=== PATIENT | male | born 1945 ===

== ENCOUNTER 2017-06-17 12:47 | Inpatient (IN) | payer MEDICARE ==
[2017-06-17] MEDS ORDERED: NS 0.9% 1000 ML* 1,000 ML IV ONE ×2 (12:55→15:09)
[2017-06-17 13:16] LABS: ABS Basophils 0.1 10^3/ul (0-0.2); ABS Eosinophils 0 10^3/ul (0-0.6); ABS Lymphocytes 0.8 10^3/ul (1.0-4.8); ABS Monocytes 1.1 10^3/ul (0-0.8); ABS Nucleated RBC 0 10^3/ul; Eosinophil % 0 % (0-6); Hematocrit 35 % (42-52); Hemoglobin 11.5 g/dl (14.0-18.0); Lymphocyte % 5.5 % (25-47); Mean Corpuscular HGB Conc 33 g/dl (31-36); Mean Corpuscular Hemoglobin 30 pg (27-31); Mean Corpuscular Volume 91 fL (80-94); Mean Platelet Volume 9.3 um3 (7.4-10.4); Nucleated Red Blood Cells % 0; Platelet Count 179 10^3/ul (150-450); Red Blood Count 3.82 10^6/ul (4.0-5.4); Red Cell Distribution Width 15 % (10.5-15)
[2017-06-17 13:26] LABS: INR 1.1 (0.77-1.02)
--- NOTE | 2017-06-17 13:34 | RAD ---
Indication: Confusion. Single frontal view of the chest performed at 1315 hours was reviewed. No prior study is available for comparison. Cardiomegaly is noted. Interstitial edema is noted. Patient is status post transsternal thoracotomy. No definite pleural fluid is identified. IMPRESSION: CARDIOMEGALY WITH INTERSTITIAL EDEMA. FINDINGS CONSISTENT WITH CHF.
[2017-06-17] MEDS ORDERED: Piperacillin/Tazobac ADVAN(*) 3.375 GM in NS 0.9% 100 ML* 100 ML IVPB ONE (13:37)
[2017-06-17] MEDS ORDERED: Vancomycin(*) 1,500 MG in NS 0.9% 250 ML* 250 ML IVPB ONE (13:37)
[2017-06-17 13:38] LABS: EGFR Non-African American 42.8 (>60)
[2017-06-17] MEDS ORDERED: levETIRAcetam IV* 1,000 MG in NS 0.9% 100 ML* 100 ML IVPB ONE (13:44)
--- NOTE | 2017-06-17 13:46 | RAD ---
Indication: Confusion. CT of the brain was performed without IV contrast. There is a large intraparenchymal hematoma involving the left temporal lobe extending into the left frontal and parietal lobes. This is causing mass effect on the lateral ventricles. Midline shift to the right approximate 5 mm is noted. Intraventricular hemorrhage is noted in both lateral ventricles. Extra-axial spaces are unremarkable. Mastoid air cells and paranasal sinuses are otherwise unremarkable. IMPRESSION: Large left-sided intraparenchymal hematoma with mass effect on the lateral ventricle and bilateral intraventricular hemorrhage. There is midline shift to the right of approximately [address] Abel was notified of the results at 1343 hours.
--- NOTE | 2017-06-17 13:52 | RAD ---
HISTORY: Altered mental status, neck pain, found down COMPARISONS: MRI dated February 18, 2003 TECHNIQUE: Multiple contiguous axial CT scans were obtained of the cervical spine without intravenous contrast, with coronal and sagittal multiplanar reformations. FINDINGS: BRAIN: The visualized brain is unremarkable CENTRAL CANAL: Evaluation of the central canal is limited on CT technique; however, there is no obvious canalicular mass or epidural hemorrhage. ALIGNMENT: There is grade 1 anterolisthesis of C3 on C4 and C7 on T1. VERTEBRAL BODIES: There is multilevel anterolateral marginal osteophyte formation. There is no displaced fracture or dislocation. JOINTS: There is osteoarthritis of the atlantoaxial, uncovertebral, and facet joints. There is exuberant pannus formation at the lateral axial articulation, without appreciable mass effect upon the cervicomedullary junction.. MUSCULATURE: Unremarkable INTERVERTEBRAL DISCS: There is diffuse loss of intervertebral disc height. AXIAL IMAGES: C2-C3: There is no osseous neural foraminal narrowing or central canal stenosis. C3-C4: There is bilateral uncovertebral and facet hypertrophy. There is severe bilateral neural foraminal narrowing. There is mild narrowing of central canal. C4-C5: There is bilateral uncovertebral and facet hypertrophy. There is moderate right and mild left neuroforaminal narrowing. There is no osseous central canal stenosis. C5-C6: There is bilateral uncovertebral hypertrophy. There is moderate to severe bilateral neural foraminal narrowing. There is no osseous central canal stenosis. C6-C7: There is bilateral uncovertebral hypertrophy. There is moderate bilateral neural foraminal narrowing. There is no osseous canal stenosis. C7-T1: There is no osseous neural foraminal narrowing or central canal stenosis. SOFT TISSUES: The visualized soft tissues of the neck are unremarkable. The prevertebral fat stripe is preserved. OTHER: None. IMPRESSION: 1. DEGENERATIVE DISC DISEASE AND OSTEOARTHRITIS. 2. THERE IS EXUBERANT PANNUS FORMATION AT C1-C2, WITHOUT APPRECIABLE MASS EFFECT UPON THE CERVICOMEDULLARY JUNCTION. 3. THERE IS MILD NARROWING OF THE CENTRAL CANAL AT C3-C4. 4. THERE IS MULTILEVEL NEURAL FORAMINAL NARROWING DESCRIBED ABOVE.
[2017-06-17 14:00] LABS: Urine Appearance Cloudy; Urine Blood 2+ (Negative); Urine Color Yellow; Urine Ketones Trace (Negative); Urine Protein 2+(100 mg/dL) (Negative); Urine Specific Gravity 1.019 (1.010-1.030); Urine Urobilinogen Negative (Negative)
[2017-06-17] MEDS ORDERED: Etomidate* 2 MG/ML 20 ML VIAL (40 MG) ONE (14:41)
[2017-06-17] MEDS ORDERED: Succinylcholine* 20 MG/ML 10 ML VIAL ONE (14:43)
[2017-06-17] MEDS ORDERED: Propofol* 100 ML ONE (14:58)
[2017-06-17] MEDS: Propofol* 100 ML IV SCH ×3 (15:05→22:49)
[2017-06-17] MEDS ORDERED: Sodium Chloride 3% HYPERTONIC* 500 ML IVPB ONE (15:07)
[2017-06-17] MEDS ORDERED: Albuterol/Ipratropium NEB.SOL* Albuterol 2.5 MG/Ipratropium 0.5 MG 3 ML INH PRN (15:11)
[2017-06-17] MEDS ORDERED: Artificial Tears* 15 ML BTL BOTH EYES PRN (15:11)
--- NOTE | 2017-06-17 15:25 | RAD ---
HISTORY: Intubation COMPARISONS: June 17, 2017 and 1:10 PM VIEWS: 1: frontal portable view of the chest at 3:13 PM FINDINGS: LINES AND TUBES: There has been interval placement of an endotracheal tube. The tip overlies the trachea just below the clavicles. CARDIOMEDIASTINAL SILHOUETTE: The cardiac silhouette is enlarged. The cardiomediastinal silhouette is otherwise normal for portable technique. PLEURA: The costophrenic angles are sharp. No pleural abnormalities are noted. LUNG PARENCHYMA: There is prominence of the central pulmonary vasculature. ABDOMEN: The upper abdomen is clear. There is no subphrenic gas. BONES AND SOFT TISSUES: The patient is status post median sternotomy. IMPRESSION: 1. LINES AND TUBES ABOVE. 2. CARDIOMEGALY WITH PULMONARY VASCULAR CONGESTION.
--- NOTE | 2017-06-17 15:54 | HP ---
H&P (Free Text) History and Physical: CRITICAL CARE MEDICINE DATE: 06/17/17 TIME: 1445 PRIMARY CARE PROVIDER: Unknown REFERRING PROVIDER: Page REASON/CHIEF COMPLAINT: Iph, ivh HISTORY OF PRESENT ILLNESS: 71 M with h/o htn, cad, with poor activity level at home but details limited. Son states pt sleeps a lot (can be 12-16hours per day sometimes) and he assumed he was just sleeping last night. Last known well was over 24hrs ago. This am he was unarousable and ems summonded. In ED pt with GSC 5-[address] head with large left iph and ivh extension, likely originating in BG. Pt with poor airway protection and intubated for such in ED. initial bps 140s but have risen during stay. I evaluated and discussed situation with pts son (see below). Admitting to ICU. REVIEW OF SYSTEMS: As per HPI, limited sec to acuity. PAST MEDICAL HISTORY: As per HPI. melanoma, discetcomies, appendectomy, depression, dm MEDICATIONS: Reviewed. ALLERGIES: meperdine SOCIAL HISTORY: Reviewed. poor activity level. FAMILY HISTORY: Noncontributory at present. PHYSICAL EXAM: being set up for intubation at time of eval. Vital Signs: Reviewed. Neurologic: coma; moves both ue to pain and attempts slow localization alone thompson. Less response from LE. breathing but inadequate airway protection. HEENT: pupils were difficult to see as he had significant conjunctival exudate on both eyes; mm dry Cardiovascular: S1 S2 distant Respiratory: rhonchi but distant and not coughing Abdomen: soft, nt Extremities: disheveled; no edema Access: piv LABS: Reviewed. IMAGING: Reviewed. MEDICATIONS: Reviewed. ASSESSMENT: 71 M Large left IPH, likely originating from BG, with IVH extension and midline shift Coma Acute hypoxic resp failure due to above ?Aspiration vs just atelectasis KADIE Leukocytosis - reactive mild LA PLAN: d/w pts son regarding dx and treatment. Explained my concerns of potential underlying lesion and consideration for angio needs even if some portion of this potential sah, vs needing clot extraction with tpa techniques, and further invasive testing that we do not provided here; however explaining these dynamics may not necessarily be offered nor beneficial at other institutions either. We discussed medical and surgical capabilities and potentials here and where pts morbidity and mortality may be nonetheless. He agrees with aggressive medical therapy as we can here, without transfer, and understanding that aggressive surgical interventions here, al beit not warranted yet here, may be limited based on risk/benefit and would likely be avoid but could discuss during his acute phase. We agreed to admit and tx as we can here, as a dnr. Neurologic: start 3%. goal na 150 for today. nicardipine gtt. maintain sbp < 140. hob 30. neurochecks. CT tonight if nsgy desires otherwise can repeat honey am. check cva risk factor. Cardiovascular: may need to assess underlying cardiac function. NS as dry and then 3% for vol status. Respiratory: APV and support with vent protection. needs time here. Gastrointestinal: ogt. consider early tf come honey. sup Renal/Metabolic: ck up and cr; hydration and then maintain with 3% and f/u renal fx. milan. Infectious Disease: aspiration potential. no abx need currently. Hematology: f/u. can hold on vte checmical proph this first 48h and then consider if stability. Endocrine: check a1c. lipids. ssi. Musculoskeletal: bedrest. avoid breakdown. Psych/Social: d/w son, as above. Supportive and preventative care as ordered. SUP: ppi VTE prophylaxis: heparin Milan catheter given critical illness, monitoring needs for accurate assessment of KADIE and KDIGO criteria for critically ill patients and to avoid potential harms of urinary retention, skin breakdown/ulcers. Disposition: ICU Code Status: Full Critical Care Time: 45min Princess Bah DO
--- NOTE | 2017-06-17 15:59 | ED ---
Hubert Albright Gabriel, scribed for Walker Abel on 06/17/17 at 1258 . Altered Mental Status - HPI Summary HPI Summary: This patient is a 71 year old M BIBA to [facility] after being found unresponsive at 1100 today. Pt was found laying on the floor under his bed, his son heard him groining last night but believed he was just sleeping. He was last seen normal yesterday morning. At baseline he is alert, responsive, and takes care of himself. The patient is completely unresponsive and was found to be hypothermic by EMS on arrival. There is no heat where he lives and they use space heaters. Ems states the only response was one grunt when pulled his arm during transport. Rectal thermometer in room reveals 98.7. LEVEL 5 CAVEAT: HPI limited because the patient is unconscious - History Of Current Complaint Stated Complaint: UNRESPONSIVE Hx Obtained From: Family/Confidential Investigator, EMS, Medical Records Hx From Patient Unobtainable Due To: Altered Mental Status Onset/Duration: Unknown Timing: Constant Severity Initially: Severe Severity Currently: Severe Character: Responsiveness Aggravating Factor(s): Unknown Alleviating Factor(s): Unknown - Allergies/Home Medications Allergies/Adverse Reactions: Allergies Allergy/AdvReac Type Severity Reaction Status Date / Time meperidine [From Demerol] Allergy Unknown Verified 06/17/17 14:06 Reaction Details Home Medications: Home Medications BuPROPion XL* [Bupropion XL*] 300 mg PO DAILY 06/17/17 [History Confirmed ] Hyoscyamine Sulfate [Hyoscyamine Sulfate Sr] 0.375 mg PO BID 06/17/17 [History Confirmed 06/17/17] Isosorbide Mononitrate ER TAB* [Imdur ER TAB*] 30 mg PO BID 06/17/17 [History Confirmed 06/17/17] Metoprolol Tartrate TAB* [Lopressor TAB*] 50 mg PO BID 06/17/17 [History Confirmed 06/17/17] Pantoprazole TAB (NF) [Protonix TAB (NF)] 40 mg PO DAILY 06/17/17 [History Confirmed 06/17/17] Repaglinide TAB* [Prandin TAB*] 2 mg PO BID 06/17/17 [History Confirmed 06/17/17 ] Rosuvastatin (NF) [Crestor] 20 mg PO DAILY 06/17/17 [History Confirmed 06/17/17] Sertraline* [Zoloft*] 50 mg PO DAILY 06/17/17 [History Confirmed 06/17/17] PMH/Surg Hx/FS Hx/Imm Hx Cardiovascular History: Reports: Hx Coronary Artery Disease, Hx Hypertension Review of Systems - ROS Summary Review of Systems Summary: LEVEL 5 CAVEAT: ROS limited because the patient is unconscious Negative: Fever Neurological: Other - AMS All Other Systems Reviewed And Are Negative: No Physical Exam - Summary Physical Exam Summary: Appearance: elderly, unconscious Skin: warm, dry, reflects adequate perfusion Head/face: normal Eyes: EOMI, VICTOR MANUEL ENT: dry mucous membranes Neck: supple, Respiratory: CTA, breath sounds present, lungs are clear Cardiovascular: tachycardia, pulses symmetrical Abdomen: soft Bowel: present Musculoskeletal: pulse present b/l Neuro: unresponsive and moving ext for painfull stimuli Triage Information Reviewed: Yes Vital Signs Reviewed: Yes Completion Of Physical Exam Limited Due To: Altered Mental Status, Level 5 - [place] Coma Scale Best Eye Response: 1 - None Best Motor Response: 1 - None Best Verbal Response: 2 - Incomprehensible Words Coma Scale Total: 4 Procedures - Intubation Time of Intubation: 14:52 Intubation Method: orotracheal Tube Size (cm): 8.0 Medications: Succinylcholine Breath Sounds after Intubation: equal Intubation Complications: no complications Post Intubation Xray: Yes Diagnostics - Laboratory Result Diagrams: 06/17/17 12:57 06/17/17 12:57 Lab Statement: Any lab studies that have been ordered have been reviewed, and results considered in the medical decision making process. - Radiology CXR Radiology Interpretation Completed By: Radiologist - CARDIOMEGALY WITH INTERSTITIAL EDEMA. FINDINGS CONSISTENT WITH CHF. ED physician has reviewed this radiology report. - CT CT brain CT Interpretation Completed By: Radiologist - Large left-sided intraparenchymal hematoma with mass effect on the lateral ventricle and bilateral intraventricular hemorrhage. There is midline shift to the right of approximately 5 mm. ED physician has reviewed this radiology report. CT C-spine CT Interpretation Completed By: Radiologist - 1. DEGENERATIVE DISC DISEASE AND OSTEOARTHRITIS. 2. THERE IS EXUBERANT PANNUS FORMATION AT C1-C2, WITHOUT APPRECIABLE MASS EFFECT UPON THE CERVICOMEDULLARY JUNCTION. 3. THERE IS MILD NARROWING OF THE CENTRAL CANAL AT C3-C4. 4. THERE IS MULTILEVEL NEURAL FORAMINAL NARROWING DESCRIBED ABOVE. ED physician has reviewed this radiology report. Altered Mental Statu Course/Dx - Course Assessment/Plan: PT can in for AMS. Exam limited because the patient is unconscious. UA and blood work obtained. CXR reveals, per radiologist, CARDIOMEGALY WITH INTERSTITIAL EDEMA. FINDINGS CONSISTENT WITH CHF. CT brain reveals, per radiologist, Large left-sided intraparenchymal hematoma with mass effect on the lateral. ventricle and bilateral intraventricular hemorrhage. There is midline shift to the right. of approximately [address] Cspine reveals , per radiologist, 1. DEGENERATIVE DISC DISEASE AND OSTEOARTHRITIS. 2. THERE IS EXUBERANT PANNUS FORMATION AT C1-C2, WITHOUT APPRECIABLE MASS EFFECT UPON THE. CERVICOMEDULLARY JUNCTION. 3. THERE IS MILD NARROWING OF THE CENTRAL CANAL AT C3-C4. 4. THERE IS MULTILEVEL NEURAL FORAMINAL NARROWING DESCRIBED ABOVE. Dx intra cerebral bleed. Patient will be admitted to ICU. - Diagnoses Differential Diagnosis/HQI/PQRI: CVA, Intracranial Bleed, Metabolic Disorder, Overdose, Sepsis, TIA Provider Diagnoses: Intracerebral bleed - Critical Care Time Critical Care Time: 75-104 min Discharge - Sign-Out/Discharge Documenting (check all that apply): Discharge - Discharge Plan Condition: Fair Disposition: ADMITTED TO [facility] Referrals: No Primary Care Phys,NOPCP [Primary Care Provider] - - Billing Disposition and Condition Condition: FAIR [place] [place] Consult: 13:45 We discussed patient care with Dr. Flores and they suggested calling the demolition hammer operator. 14:17 We discussed patient care with Dr. Sawant and he will be look at the CT call back. 14:24 We discussed patient care with Dr. Bah and he suggested to let neurosurgery review the case and make a decision. 14:50 We discussed patient care with Dr. Sawant and he states the patient is not a surgical pt and he will come and see him. 14:55 We discussed patient care with Dr. Cruz and he has agreed to review the film and consult on the patient. 15:00 Dr. Dykes has agreed to admit the patient to ICU. The documentation as recorded by the Hubert melchor Gabriel accurately reflects the service I personally performed and the decisions made by , Walker Abel.
--- NOTE | 2017-06-17 16:04 | PN ---
Progress Note - Progress Note Date of Service: 06/17/17 Note: CRITICAL CARE MEDICINE DATE: 06/17/17 TIME: 1545 Re-exam of pt: pupils small and reactive. + corneals. Areas consistent appearing with acte and subacute falls. older ecchymotic abrasion of R supraorbital. Has ecchymosis at R wrist with edema as well as R knee. 3 old sutures in site on R arm. Abrasion and ecchymosis of RUQ. Needs imaging of R wrist Needs central access Critical Care Time: 5min Princess Bah DO
[2017-06-17] MEDS ORDERED: fentaNYL* 50 MCG/ML 2 ML VIAL (100 MCG VIAL) IV SLOW PU ONE (16:15)
[2017-06-17] MEDS ORDERED: fentaNYL* 50 MCG/ML 2 ML VIAL (100 MCG VIAL) ONE (16:17)
--- NOTE | 2017-06-17 17:11 | PN ---
Progress Note - Progress Note Date of Service: 06/17/17 Note: CRITICAL CARE MEDICINE DATE: 06/17/17 TIME: 1700 care d/w pts son and nsgy. son declining any nsgy procedures now and immediate future understanding the morbidity and mortality associated. wants support, without heroics, for a few days, but if pt cannot regain communication and some self care then likely allow comfort. He even explained that pt himself may not even want what he has now. Critical Care Time: 15min Princess Bah, DO
--- NOTE | 2017-06-17 17:36 | RAD ---
HISTORY: Central line placement COMPARISONS: June 17, 2017 at 3:00 PM VIEWS: 1: frontal portable view of the chest at 5:18 PM FINDINGS: LINES AND TUBES: The endotracheal tube is noted with the tip overlying the trachea between the clavicles and the porter. There has been interval placement of a right internal jugular venous catheter. The tip overlies the expected location of the superior vena cava. CARDIOMEDIASTINAL SILHOUETTE: The cardiomediastinal silhouette is stable. PLEURA: The costophrenic angles are sharp. No pleural abnormalities are noted. There is no appreciable pneumothorax. LUNG PARENCHYMA: There is prominence of the central pulmonary vasculature. The lung volumes are low. ABDOMEN: The upper abdomen is clear. There is no subphrenic gas. BONES AND SOFT TISSUES: The patient is status post median sternotomy. IMPRESSION: LINES AND TUBES ABOVE. NO APPRECIABLE PNEUMOTHORAX.
[2017-06-17] MEDS: Chlorhexidine MOUTHWASH 0.12%* 15 ML UDC TOPICAL SCH ×2 (18:17→22:54)
[2017-06-17] MEDS ORDERED: Magnesium Sulfate 2 GM IV IVPB ONE (18:51)
[2017-06-17] MEDS ORDERED: Magnesium Sulfate 2 GM IV* 2 GM/50 ML BAG ONE (18:53)
[2017-06-17] MEDS: Insulin REGULAR(*) 1 UNITS UNIT SUBCUT SCH (19:48)
--- NOTE | 2017-06-17 20:10 | PN ---
Progress Note - Progress Note Date of Service: 06/17/17 Note: CRITICAL CARE MEDICINE PROCEDURE NOTE DATE: 06/16/17 TIME: late entry from 1630 SERVICE: Critical Care Medicine LOCATION OF PROCEDURE: ICU PROCEDURE: Central line insertion. PROCEDURALIST: Dr. Bah Consent obtain: Yes verbal from son. Time out held: Yes INDICATION: Acute respiratory failure sec to ICH. PROCEDURE: Oxygenation maintained and vitals monitored. Patient in supine position. SITE: RIGHT Internal jugular Site preparation with chlorhexidine locally. Full sterile drape, gown, hat, mask, gloves. 5ml 1% Lidocaine utilized at incision site. Standard sterile Seldinger technique utilized via ultrasound guidance and catheter was inserted to 15cm and sutured in place. Good blood return. Minimal blood loss. Site dressed with tegaderm. Portable chest x-ray pending. Patient otherwise tolerated well. Princess Bah DO
--- NOTE | 2017-06-17 22:15 | CONS ---
Amended report to enter date of consultation. CONSULTATION REPORT: DATE OF CONSULT: 06/17/2017. HISTORY OF PRESENT ILLNESS: The patient is a very pleasant 71-year-old gentleman with history of hypertension, coronary artery disease, who was brought to the emergency room by EMT after reported to be found down by his son. The patient was seen normal the night prior to his admission. At the emergency room, the patient had GCS score of [address] scan of the head revealed a large left basal ganglia intracranial hemorrhage with intraventricular extension. The patient was intubated in the emergency room, requested to see the patient by the emergency room physician regarding CT scan findings. The patient was reported to be not on any anticoagulation. His blood pressure was controlled and the patient was admitted to intensive care unit after Dr. Bah discussed in extent with the patient's son regarding treatment options and level of care. PAST MEDICAL HISTORY: Hypertension, coronary artery disease. ALLERGIES: MEPERIDINE. MEDICATIONS: The patient is on: 1. Bupropion. 2. Hyoscyamine. 3. Isosorbide mononitrate. 4. Metoprolol. 5. Pantoprazole. 6. Repaglinide. 7. Rosuvastatin. 8. Sertraline. 9. Zoloft. FAMILY HISTORY: Noncontributory. SOCIAL HISTORY: The patient lives at home. He has very low activity level. PHYSICAL EXAMINATION: The patient was intubated in the emergency room after intubation. He does not open his eyes to pain. He is intubated, so he does not follow commands. He flexes the left upper extremity to pain and extends the right upper extremity to pain. Pupils are 4 mm on the right, 3 mm on the left, both reactive. He has got corneal, gag and cough reflexes. Face symmetric. Gaze conjugated. Sensory: The patient withdraws to pain with all extremities. Deep tendon reflexes +2 bilaterally. Clonus negative. Babinski positive bilaterally. DIAGNOSTIC STUDIES/LAB DATA: The patient had a CT scan of the brain revealing large left basal ganglia hemorrhage with mild mass effect with 5 mm midline shift. There is intraventricular extension with mild compression of the left ventricular system. The had a CT scan of the cervical spine revealing degenerative disk disease with spinal stenosis at C1-C2 without evidence of fracture. ASSESSMENT: The patient is a pleasant 71-year-old gentleman who was reported to be found down with altered mental status with CT scan findings consistent with large left basal ganglia intracranial hemorrhage with intraventricular extension. PLAN: The patient at this point has been admitted to the intensive care unit. After discussion of the patient's condition with the patient's son, the patient' s son would not like any surgical interventions or diagnostic interventions for the patient such as ventriculostomy, craniotomy or angiography. He understands different treatment options as well as possible outcomes for more conservative versus very aggressive treatment. At this point, he reports that according to patient's wishes, he would not like to consider surgical intervention or placement of ventriculostomy or further evaluation for possible aneurysmal vascular malformation, although he reports that there is a family history of cerebral aneurysm. The patient's son understands the possible grave prognosis and he has decided to place the patient on DNR. The patient will be receiving maximum medical therapy without any surgical intervention per family wishes. We will be available as needed. Full instructions were given to the patient's son, who understands the consequences of his decision. Appreciate Dr Green for his input in the discussion with patient's son. Thank you for allowing us to participate in the care of this patient. Please do not hesitate to contact our office in case you have any further questions or concerns regarding the care of this patient. [id number]/CPS #: [id number] MARVIN
[2017-06-18] MEDS: Propofol* 100 ML IV SCH ×6 (00:36→14:14)
[2017-06-18] MEDS: Chlorhexidine MOUTHWASH 0.12%* 15 ML UDC TOPICAL SCH ×7 (00:53→23:53)
[2017-06-18] MEDS: Insulin REGULAR(*) 1 UNITS UNIT SUBCUT SCH ×5 (01:45→23:53)
[2017-06-18] MEDS: fentaNYL* 50 MCG/ML 2 ML VIAL (100 MCG VIAL) IV SLOW PU PRN ×2 (01:45→11:18)
[2017-06-18] MEDS: Sodium Chloride 3% HYPERTONIC* 500 ML IVPB SCH ×2 (03:08→14:01)
[2017-06-18 06:20] LABS: Hematocrit 29 % (42-52); Hemoglobin 9.9 g/dl (14.0-18.0); Mean Corpuscular HGB Conc 34 g/dl (31-36); Mean Corpuscular Hemoglobin 31 pg (27-31); Mean Corpuscular Volume 91 fL (80-94); Platelet Count 124 10^3/ul (150-450); Red Blood Count 3.19 10^6/ul (4.0-5.4); Red Cell Distribution Width 15 % (10.5-15); White Blood Count 10.9 10^3/ul (3.5-10.8)
[2017-06-18 06:41] LABS: EGFR Non-African American 52.1 (>60)
[2017-06-18 06:43] LABS: INR 1.05 (0.77-1.02)
--- NOTE | 2017-06-18 07:27 | RAD ---
HISTORY: Right wrist abnormality, rule out fracture COMPARISONS: None VIEWS: 2, Frontal and lateral views of the right wrist FINDINGS: BONE DENSITY: Normal. BONES: There is no displaced fracture. JOINTS: There is no arthropathy. ALIGNMENT: There is no dislocation. SOFT TISSUES: There is circumferential soft tissue swelling at the wrist. OTHER FINDINGS: None. IMPRESSION: SOFT TISSUE SWELLING. NO ACUTE OSSEOUS INJURY. IF SYMPTOMS PERSIST, RECOMMEND REPEAT IMAGING.
[2017-06-18] MEDS: Lansoprazole susp Kit 3 MG/ML (30 MG = 10 ML) G TUBE SCH (08:13)
[2017-06-18] MEDS ORDERED: Lansoprazole SOLUTAB* 30 MG G TUBE SCH (09:00)
--- NOTE | 2017-06-18 09:13 | PN ---
Date of Service: 06/18/17 - [facility] note Critical Care Services: Pt seen and examined at bedside. Pt is intubated, sedated, no acute events o/n Active Medications Generic Name Dose Route Start Last Admin Trade Name Freq PRN Reason Stop Dose Admin Acetaminophen 650 mg 06/17/17 15:10 Tylenol Adult Liq* PO Q4H PRN FEVER Albuterol/Ipratropium 1 neb 06/17/17 15:11 Duoneb (Albuterol 2.5 Mg/Ipratropium 0.5 Mg) INH Q6H PRN SOB/WHEEZING Chlorhexidine Gluconate 15 ml 06/17/17 16:00 06/18/17 08:13 Peridex Mouth Wash 0.12%* TOPICAL 15 ml Q4H CHRISTY Administration Fentanyl Citrate 50 mcg 06/18/17 01:34 06/18/17 01:45 Fentanyl* IV SLOW PU 50 mcg Q3HR PRN Administration PAIN Heparin Sodium (Porcine) 1 - 3 ml 06/17/17 22:00 06/18/17 05:53 Heparin Flush Picc/Ml/Cvc(*) FLUSH Not Given 0600,1800 [facility] Protocol Propofol 100 mls @ 0 mls/hr 06/17/17 15:00 06/18/17 08:31 Diprivan* IV 35.5 mls/hr .(Initial Rate) CHRISTY Administration Protocol Per Protocol Nicardipine/Sodium Chloride 20 mg in 200 mls @ 50 mls/hr 06/17/17 16:00 Cardene 0.1mg/Ml Ivpremix* IV .(as Initial Rate) CHRISTY 5 MG/HR Insulin Human Regular 0 units 06/17/17 18:00 06/18/17 06:45 Insulin Regular(*) SUBCUT Not Given Q6HR [facility] Protocol Lansoprazole 30 mg 06/18/17 09:00 06/18/17 08:13 Lansoprazole Susp Kit G TUBE 30 mg DAILY CHRISTY Administration Polyvinyl Alcohol 1 drop 06/17/17 15:11 Polyvinyl Alcohol 1.4% Opth* BOTH EYES Q2H PRN DRY EYE Vital Signs: Temp Pulse Resp BP SpO2 FiO2 100 F 73 20 130/61 99 30 06/18/17 07:55 06/18/17 08:15 06/18/17 08:00 06/18/17 08:15 06/18/17 08:15 06/18 08:03 Physical Exam: Gen: Pt is sedated, intubated HEENT:PERRLA, ETT, OGT in place Lungs:Clear to auscultation b/l Cardiac: S1, S2+, regular Abdomen:Soft, BS+ Extremities: No edema Neuro: Sedated, unable to assess neuro status, gag reflex noted on suctioning Fluid Balance (Past 24 Hours): R=4584 O=950 Net 279 Intake & Output 06/16/17 06/17/17 06/18/17 06/19/17 06:59 06:59 06:59 06:59 Intake Total 1229 Output Total 950 Balance 279 Weight 216 lb 0.848 oz Intake: IV Fluids 743 3% Hypertonic saline 645 NS to Maintain IV Patency 98 IVPB 50 NS to Maintain IV Patency 50 Medicated IV 436 CC - Propofol/Diprivan 436 Oral 0 Output: [place] 950 Labs: Laboratory Results - last 24 hr 06/17/17 06/17/17 06/17/17 17:07 18:34 21:23 WBC RBC Hgb Hct MCV MCH MCHC RDW Plt Count MPV INR (Anticoag Therapy) Sodium 141 144 Potassium Chloride Carbon Dioxide Anion Gap BUN Creatinine Est GFR ( Amer) Est GFR (Non-Af Amer) BUN/Creatinine Ratio Glucose POC Glucose (mg/dL) 234 H Calcium Phosphorus Magnesium Total Bilirubin AST ALT Alkaline Phosphatase Troponin I 0.04 H* 0.04 H* Total Protein Albumin Globulin Albumin/Globulin Ratio 06/18/17 06/18/17 06/18/17 01:11 03:46 06:04 WBC 10.9 H RBC 3.19 L Hgb 9.9 L Hct 29 L MCV 91 MCH 31 MCHC 34 RDW 15 Plt Count 124 L MPV 9.0 INR (Anticoag Therapy) Sodium 146 H Potassium Chloride Carbon Dioxide Anion Gap BUN Creatinine Est GFR ( Amer) Est GFR (Non-Af Amer) BUN/Creatinine Ratio Glucose POC Glucose (mg/dL) 174 H Calcium Phosphorus Magnesium Total Bilirubin AST ALT Alkaline Phosphatase Troponin I Total Protein Albumin Globulin Albumin/Globulin Ratio 06/18/17 06/18/17 06:04 06:04 WBC RBC Hgb Hct MCV MCH MCHC RDW Plt Count MPV INR (Anticoag Therapy) 1.05 H Sodium 147 H Potassium 3.8 Chloride 120 H Carbon Dioxide 20 L Anion Gap 7 BUN 37 H Creatinine 1.35 H Est GFR ( Amer) 67.0 Est GFR (Non-Af Amer) 52.1 BUN/Creatinine Ratio 27.4 H Glucose 144 H POC Glucose (mg/dL) Calcium 8.2 L Phosphorus 3.4 Magnesium 2.4 Total Bilirubin 0.50 AST 53 H ALT 19 Alkaline Phosphatase 52 Troponin I Total Protein 5.2 L Albumin 3.2 Globulin 2.0 Albumin/Globulin Ratio 1.6 Studies: CT brain: Large left intraparenchymal hematoma with mass effect, midline shift and intraventricular hemorrhage b/l CXR: ETT in place, Rt IJ in place, mild vascular congestion was seen Nutrition: NPO for now, will start tube feeds at low rate Impression: 1. Intracranial hemorrage with mass effect and midline shift 2. AMS/Coma 3. Intubation for airway protection 4. KADIE Plan: 1. Neuro: Family declined any neuro surgical intervention. Keep head of bed elevated at 30, SBP less than 140, c/w Nicardipine drip, Maintain sodium around 150, supportive care for now. C/w Propofol for sedation, seizure precuations. Will rpt CT brain tomorrow 2. CVS: Hemodynamically stable, titrate Nicardipine drip to maintain SBP around 130-140 3. Resp: Intubated for airway protection given neurological status. Resp mechanics are acceptable, permissive hypercapnia to allow cerebral perfusion. Pulm toilet 4.GI: He is NPO, OGT in place, will start trophic feeds today and advance as tolerated as no plans for extubation today. 5. ID: Leucocytosis however do not suspect infection. Will hold off on abx. Will maintian normothermia to decrease [employer] metabolism. Low grade fever this am, tylenol prn 6. Haem: Leucocytosis- reactive, normocytic anemia, low platelets today likely dilutional 7.Renal: Renal insufficiency- ? sec to dehydration, c/w IV hydration, monitor UO 8. Endo: Bl sugars elevated, will c/w Insulin ss to avoid hyperglycemia 9. Musculoskletal: Multiple bruises on extremities, Rt wrist swollen, no fracture noted on X-ray, soft tissue swelling noted, frequent turning and positioning, skin care to prevent decub 10. DVT px: SCD`s, avoiding heparin sec to intracranial bleed 11. Supportive and preventive care as ordered 12. Psychosocial: Son is HCP, no aggressive measures, might decide on comfort measures if no improvement over next few days Code status: Pt is DNR Critical Care Time: 30 min
[2017-06-18] MEDS: niCARdipine 0.1MG/ML IVPREMIX* 20 MG/200 ML BAG IV SCH ×4 (15:51→23:46)
[2017-06-18] MEDS ORDERED: Sodium Chloride 3% HYPERTONIC* 500 ML IVPB ONE (23:00)
[2017-06-19] MEDS: Propofol* 100 ML IV SCH ×7 (00:15→23:17)
[2017-06-19] MEDS: niCARdipine 0.1MG/ML IVPREMIX* 20 MG/200 ML BAG IV SCH ×8 (02:36→22:02)
[2017-06-19] MEDS: Chlorhexidine MOUTHWASH 0.12%* 15 ML UDC TOPICAL SCH ×5 (03:51→20:00)
[2017-06-19] MEDS: fentaNYL* 50 MCG/ML 2 ML VIAL (100 MCG VIAL) IV SLOW PU PRN (03:51)
[2017-06-19] MEDS: Insulin REGULAR(*) 1 UNITS UNIT SUBCUT SCH ×3 (06:34→19:21)
[2017-06-19] MEDS: Lansoprazole susp Kit 3 MG/ML (30 MG = 10 ML) G TUBE SCH (08:06)
[2017-06-19] MEDS: Acetaminophen ADULT LIQ* 650 MG/20.3 ML UDC PO PRN ×2 (08:29→12:40)
--- NOTE | 2017-06-19 08:53 | PN ---
Date of Service: 06/19/17 - [facility] f/u note Critical Care Services: Pt seen and examined at bedside. No acute events o/n. Hypertonic saline was held this am. Low grade fever, tylenol was administered. Blood in urine noted this am. Moves left upper and lower extremities after Propofol held, doesnot follow commands, no purposeful movements. Is on Nicardipine drip. Vital Signs: Temp Pulse Resp BP SpO2 FiO2 100 F 101 18 134/65 94 30 06/19/17 07:25 06/19/17 07:31 06/19/17 07:00 06/19/17 07:30 06/19/17 07:31 06/19 04:00 Physical Exam: Gen:Pt in NAD, sedated HEENT:ETT+, OGT+ Lungs: Good air entry b/l, no wheeze, tachypenic, breathing over the vent Cardiac: S1, S2+, tachycardic Abdomen: Soft, BS+, bruise on abdomen Extremities: Bruises , trace edema + Neuro: Rt hemiparesis, moves left upper and lower extremities spontaneously when off sedation, no purposeful movements Skin: Multiple bruises all over, mostly on right side Fluid Balance (Past 24 Hours): M=2808 D=4907 Net 551 Intake & Output 06/17/17 06/18/17 06/19/17 06/20/17 06:59 06:59 06:59 06:59 Intake Total 1229 2851 Output Total 950 2300 Balance 279 551 Weight 216 lb 0.848 oz 213 lb 2.992 oz Intake: IV Fluids 743 515 3% Hypertonic saline 645 515 NS to Maintain IV Patency 98 IVPB 50 506 NS to Maintain IV Patency 50 Medicated IV 436 1746 CC - Nicarpidine/Cardene 1082 CC - Propofol/Diprivan 436 664 Oral 0 0 Tube Feeding 84 Output: [place] 950 2300 Labs: Laboratory Results - last 24 hr 06/18/17 06/18/17 06/18/17 10:30 10:30 16:09 Sodium 148 H 150 H POC Glucose (mg/dL) 173 H 06/18/17 06/18/17 06/18/17 19:35 22:10 23:52 Sodium 151 H POC Glucose (mg/dL) 157 H 152 H 06/19/17 06/19/17 04:05 06:33 Sodium 152 H POC Glucose (mg/dL) 203 H Laboratory Results - last 24 hr 06/18/17 06/18/17 06/18/17 10:30 10:30 16:09 WBC RBC Hgb Hct MCV MCH MCHC RDW Plt Count MPV Sodium 148 H 150 H Potassium Chloride Carbon Dioxide Anion Gap BUN Creatinine Est GFR ( Amer) Est GFR (Non-Af Amer) BUN/Creatinine Ratio Glucose POC Glucose (mg/dL) 173 H Calcium 06/18/17 06/18/17 06/18/17 19:35 22:10 23:52 WBC RBC Hgb Hct MCV MCH MCHC RDW Plt Count MPV Sodium 151 H Potassium Chloride Carbon Dioxide Anion Gap BUN Creatinine Est GFR ( Amer) Est GFR (Non-Af Amer) BUN/Creatinine Ratio Glucose POC Glucose (mg/dL) 157 H 152 H Calcium 06/19/17 06/19/17 06/19/17 04:05 06:33 09:24 WBC RBC Hgb Hct MCV MCH MCHC RDW Plt Count MPV Sodium 152 H 153 H Potassium 3.7 Chloride 125 H Carbon Dioxide 21 L Anion Gap 7 BUN 26 H Creatinine 1.18 H Est GFR ( Amer) 78.3 Est GFR (Non-Af Amer) 60.9 BUN/Creatinine Ratio 22.0 H Glucose 243 H POC Glucose (mg/dL) 203 H Calcium 8.4 L 06/19/17 09:24 WBC 7.4 RBC 3.06 L Hgb 9.6 L Hct 28 L MCV 93 MCH 31 MCHC 34 RDW 16 H Plt Count 109 L MPV 9.4 Sodium Potassium Chloride Carbon Dioxide Anion Gap BUN Creatinine Est GFR ( Amer) Est GFR (Non-Af Amer) BUN/Creatinine Ratio Glucose POC Glucose (mg/dL) Calcium Studies: CT brain: No significant change in comparison with prior CT, no new hemorrhage or extension Nutrition: Tube feeds Impression: 1. Intracranial hemorrage with mass effect and midline shift 2. AMS/Coma 3. Intubation for airway protection 4. KADIE Plan: 1. Neuro: No purposeful movements. Brain stem function seems to be preserved. Has rt hemiparesis which is old, spontaneous movt of LE, no purposeful movements. Keep head of bed elevated at 30, SBP less than 140, c/w Nicardipine drip, adjust hypertonic saline drip to maintain sodium around 150, supportive care for now. C/w Propofol for sedation, seizure precuations. Rpt CT brain showed no interval change. Neurosurgery f/u tomorrow 2. CVS: Tachycardic, titrate Nicardipine drip to maintain SBP around 130-140 3. Resp: Intubated for airway protection. Resp mechanics are acceptable,adjust vent settings permissive hypercapnia to allow cerebral perfusion. Pulm toilet, oral care, vent bundle ordered 4.GI: c/w OGT feeds, tolerating well. 5. ID: Leucocytosis resolved, low grade fever, likely non-infectious, tylenol prn. Will maintian normothermia to decrease [employer] metabolism. 6. Haem: Leucocytosis- resolved, normocytic anemia, low platelets likely dilutional. 7.Renal: Renal insufficiency- ? sec to dehydration, c/w IV hydration, monitor UO. Had hematuria, likely sec to [place] trauma 8. Endo: Bl sugars elevated, will c/w Insulin ss to avoid hyperglycemia 9. Musculoskletal: Multiple bruises on extremities, Rt wrist swollen, no fracture noted on X-ray, soft tissue swelling noted, frequent turning and positioning, skin care to prevent decub 10. DVT px: SCD`s, avoiding heparin sec to intracranial bleed 11. Supportive and preventive care as ordered 12. Psychosocial: Son is HCP, no aggressive measures, might decide on comfort measures if no improvement Tuesday. Family meeting yesterday with son and daughter, daughter expressed concern initially regarding her brothers ability to make decision. Agreed to current plan of care once prognosis was discussed. Daughter to arrive again on Tuesday. Patient didnot want aggressive measures as per son who was caring for patient until current hospitalization. Might need high school social science teacher involvement on Tuesday to delineate HCP Code status: Pt is DNR Critical Care Time: 30 min
[2017-06-19 09:37] LABS: Hematocrit 28 % (42-52); Hemoglobin 9.6 g/dl (14.0-18.0); Mean Corpuscular HGB Conc 34 g/dl (31-36); Mean Corpuscular Hemoglobin 31 pg (27-31); Mean Corpuscular Volume 93 fL (80-94); Mean Platelet Volume 9.4 um3 (7.4-10.4); Platelet Count 109 10^3/ul (150-450); Red Blood Count 3.06 10^6/ul (4.0-5.4); Red Cell Distribution Width 16 % (10.5-15); White Blood Count 7.4 10^3/ul (3.5-10.8)
[2017-06-19 09:50] LABS: EGFR Non-African American 60.9 (>60)
--- NOTE | 2017-06-19 10:10 | RAD ---
Indication: Follow-up intracranial hemorrhage. Comparison: June 17, 2017 Technique: Noncontrast CT vertex of skull through foramen magnum. Report: No significant change in hyperdense parenchymal hemorrhage at the LEFT cerebral hemisphere white matter at the level of the cummings radiata measuring up to 7 cm AP by 3 cm transverse. Intraventricular extension with dependent blood at the posterior horns of the bilateral lateral ventricles. Partial effacement of the LEFT cerebral sulci and compression of the LEFT lateral ventricle without change Only slight rightward midline shift at the level of the septum pellucidum. Patent basal cisterns. No new intra or extra-axial hemorrhage evident. Negative for calvarial or skull base fracture. Negative for scalp hematoma. IMPRESSION: No significant interval change in magnitude of mass effect associated with the LEFT cerebral hemisphere intra-axial hematoma with intraventricular extension similar to the prior exam. No new intra or extra-axial hemorrhage evident.
[2017-06-19 18:01] LABS: EGFR Non-African American 60.3 (>60)
[2017-06-20] MEDS: Chlorhexidine MOUTHWASH 0.12%* 15 ML UDC TOPICAL SCH ×6 (00:13→19:15)
[2017-06-20] MEDS: Insulin REGULAR(*) 1 UNITS UNIT SUBCUT SCH ×4 (00:26→18:12)
[2017-06-20] MEDS: niCARdipine 0.1MG/ML IVPREMIX* 20 MG/200 ML BAG IV SCH ×2 (00:32→02:57)
[2017-06-20] MEDS: Propofol* 100 ML IV SCH ×4 (02:56→16:19)
[2017-06-20] MEDS ORDERED: Metoprolol Tartrate IV* 1 MG/ML 5 ML VIAL ONE ×2 (03:13→03:30)
[2017-06-20] MEDS ORDERED: Adenosine* 3 MG/ML VIAL ONE ×2 (04:16→04:22)
[2017-06-20] MEDS ORDERED: Diltiazem IV* 5 MG/ML 5 ML VIAL (for loading dose/IV Push) (25 MG) ONE (04:27)
[2017-06-20] MEDS ORDERED: Diltiazem IV* 5 MG/ML 5 ML VIAL (for loading dose/IV Push) (25 MG) IV SLOW PU ONE (04:30)
[2017-06-20] MEDS: Diltiazem IV VIAL* 125 MG in NS 0.9% 100 ML* 100 ML IV SCH ×3 (04:47→22:06)
[2017-06-20 06:19] LABS: Hematocrit 30 % (42-52); Hemoglobin 9.8 g/dl (14.0-18.0); Mean Corpuscular HGB Conc 33 g/dl (31-36); Mean Corpuscular Hemoglobin 31 pg (27-31); Mean Corpuscular Volume 93 fL (80-94); Mean Platelet Volume 8.5 um3 (7.4-10.4); Platelet Count 105 10^3/ul (150-450); Red Blood Count 3.18 10^6/ul (4.0-5.4); Red Cell Distribution Width 15 % (10.5-15); White Blood Count 7.3 10^3/ul (3.5-10.8)
[2017-06-20 06:38] LABS: EGFR Non-African American 67.4 (>60)
[2017-06-20] MEDS: Lansoprazole susp Kit 3 MG/ML (30 MG = 10 ML) G TUBE SCH (08:06)
[2017-06-20] MEDS: Acetaminophen ADULT LIQ* 650 MG/20.3 ML UDC PO PRN ×2 (12:07→19:15)
--- NOTE | 2017-06-20 12:12 | PN ---
Date of Service: 06/20/17 Critical Care Services: Patient continues to be unresponsive off propofol. Has had low-grade temp ( considered secondary to the intracranial hemorrhage) Rx acetaminophen. Vital Signs: Temp Pulse Resp BP SpO2 FiO2 100.9 F 101 19 158/77 97 30 Physical Exam: Gen:Unresponsive. Has sontaneous breathing efforts. HEENT: Pupils midposition and sluggishly reactive Lungs: Scattered rhonchi on both sides. Cardiac: Reg rhythm Extremities: warm. No cyanosis or edema Neuro: Has spontaneous limb movements, but only on the left side. Fluid Balance (Past 24 Hours): 06/20/17 06:59 Intake Total 2863 Output Total 1999 Balance +863 Weight 222 lb Intake: IV Fluids 3% Hypertonic saline NS to Maintain IV Patency IVPB NS to Maintain IV Patency Medicated IV 2531 CC - Nicarpidine/Cardene 1909 CC - Propofol/Diprivan 622 Oral Tube Feeding 302 Tube Feeding Flush Amount 30 Output: [place] 1999 Labs: Laboratory Results - last 24 hr 06/20/17 06/20/17 06:05 06:05 WBC 7.3 Hgb 9.8 L Hct 30 L Plt Count 105 Sodium 152 Potassium 4.0 Chloride 124 Carbon Dioxide 22 Anion Gap 6 BUN 23 Creatinine 1.08 Glucose 222 Calcium 8.5 Studies: None today. Repeat CT scan yesterday showed no change. Nutrition: Tube feedings Impression: Continuing coma 3 days after a spontaneous intracerebral hemorrhage (left basal ganglia) with intraventricular extension. Chances of neurologic recovery (i.e., regaining independent function) are very slim at this time. Other problems: 1) Fever (?central in origin), and 2) Hypernatremia (to reduce risk of worsening cerebral edema). Plan: 1. Continue general supportive care for now. 2. Antipyretic Rx for the fever. 3. Maintain hypernatremia. 4. Plan today is to speak with son and daughter about the poor prognosis, and to recommend removing ventilator support and institute "comfort measures only" care. Critical Care Time: 35 minutes (not including time spent with son and daughter).
[2017-06-20] MEDS ORDERED: Ibuprofen ADULT LIQ* 600 MG/30 ML UDC PO PRN (20:13)
[2017-06-21] MEDS: Chlorhexidine MOUTHWASH 0.12%* 15 ML UDC TOPICAL SCH ×3 (00:19→10:01)
[2017-06-21] MEDS: Insulin REGULAR(*) 1 UNITS UNIT SUBCUT SCH ×2 (00:23→06:38)
[2017-06-21] MEDS ORDERED: Diltiazem IV VIAL* 125 MG in NS 0.9% 100 ML* 100 ML IV SCH (05:00)
[2017-06-21] MEDS: fentaNYL* 50 MCG/ML 2 ML VIAL (100 MCG VIAL) IV SLOW PU PRN ×2 (05:09→06:38)
--- NOTE | 2017-06-21 09:16 | PN ---
Progress Note - Progress Note Date of Service: 06/21/17 Note: Patient's clinical status is unchanged this AM. I have spoken with the son and daughter about the poor prognosis for neurologic recovery, and they have agreed to "comfort measures only" care. Therefore, I will d/c all meds other than opiates and benzodiazepines for comfort, and will remove ventilatory support. Patient's daughter is present at the bedside.
[2017-06-21] MEDS ORDERED: LORazepam INJ* 2 MG/ML 1 ML VIAL ONE (09:28)
[2017-06-21] MEDS ORDERED: Morphine PCA ADULT* 5 MG/ML 30 ML ONE (09:29)
[2017-06-21] MEDS ORDERED: Morphine INJ* 10 MG/ML 1 ML CARPUJECT ONE (09:29)
[2017-06-21] MEDS ORDERED: Morphine INJ* 10 MG/ML 1 ML CARPUJECT IV ONE (09:30)
[2017-06-21] MEDS ORDERED: Morphine PCA 5 MG/ML * Titrate per Protocol PCA SCH (09:30)
[2017-06-21] MEDS ORDERED: LORazepam INJ* 2 MG/ML 1 ML VIAL IV PUSH ONE (09:30)
[2017-06-21] MEDS ORDERED: LORazepam VIAL (for drip)* 200 MG in D5W 100 ML BAG* 100 ML IVPB SCH (10:00)
[2017-06-21] MEDS: Lansoprazole susp Kit 3 MG/ML (30 MG = 10 ML) G TUBE SCH (10:01)
[2017-06-21] MEDS ORDERED: D5W 100 ML BAG* 100 ML ONE (13:30)
[2017-06-21 13:58] VITALS: BP 175/85
--- NOTE | 2017-06-22 03:12 | DS ---
SUMMARY: DATE OF ADMISSION: 06/17/17 DATE : 06/21/17 SUMMARY: This patient was a 71-year-old white male who was admitted on with a large intracerebral hemorrhage on the left side, which had extended into the ventricular system. The patient was seen in consultation by neurosurgery service and because there was no surgical intervention indicated, the patient was maintained on mechanical ventilation and was treated conservatively with hypertonic saline and nicardipine for blood pressure control. The patient remained comatose and approximately 4 days after admission , the patient's daughter and son decided to institute comfort measures care, which was done on 06/21/17. The patient was removed from the ventilator and placed on a morphine and Ativan infusion and appeared comfortable. The patient eventually was pulseless and became apneic and was pronounced at 1 p.m. on 06/21/17. The patient's son and daughter were present at that time and an autopsy was denied. FINAL DIAGNOSES: 1. Acute intracerebral hemorrhage (spontaneous). 2. History of hypertension and coronary artery disease. [id number]/[facility] #: [id number] MTDD
== END 2017-06-21 13:00 | disposition expired | DRG 64 ==
LOC: ED 12:47 → ICU 15:56
PROVIDERS: ADMIT Internal Medicine Critical Care Medicine; ATTEND Internal Medicine Critical Care Medicine
PROC: 0BH17EZ Insertion of Endotracheal Airway into Trachea, Via Natural or Artificial Opening (ICD-10-PCS; principal; 2017-06-17)
PROC: 5A1945Z Respiratory Ventilation, 24-96 Consecutive Hours (ICD-10-PCS; 2017-06-17)
PROC: 05HM33Z Insertion of Infusion Device into Right Internal Jugular Vein, Percutaneous Approach (ICD-10-PCS; 2017-06-17)
PROC: B543ZZA Ultrasonography of Right Jugular Veins, Guidance (ICD-10-PCS; 2017-06-17)
DX: I61.2 Nontraumatic intracerebral hemorrhage in hemisphere, unspecified (principal); J96.01 Acute respiratory failure with hypoxia; N17.9 Acute kidney failure, unspecified; E87.0 Hyperosmolality and hypernatremia; I11.9 Hypertensive heart disease without heart failure; R40.2312 Coma scale, best motor response, none, at arrival to emergency department; R40.2112 Coma scale, eyes open, never, at arrival to emergency department; R40.2222 Coma scale, best verbal response, incomprehensible words, at arrival to emergency department; I25.10 Atherosclerotic heart disease of native coronary artery without angina pectoris; F32.9 Major depressive disorder, single episode, unspecified; D72.829 Elevated white blood cell count, unspecified; Z51.5 Encounter for palliative care; R68.0 Hypothermia, not associated with low environmental temperature; M50.31 Other cervical disc degeneration, high cervical region; R50.9 Fever, unspecified; Z66 Do not resuscitate; Z88.8 Allergy status to other drugs, medicaments and biological substances; Z79.899 Other long term (current) drug therapy
CPT/HCPCS: 36415; 70450; 71045; 72125; 80048; 80053; 81003; 81015; 82550; 82803; 83605; 83735; 83880; 84100; 84300; 84443; 84484; 85025; 85027; 85610; 85730; 87040; 87086; 87641; 93005; 94002; 94003; 94760; 99285; A9270-GY; J0153; J0330; J2060; J2270; J2543; J2704; J3010; J3370; J3475; J3490